=== PATIENT | male | born 1985 | race Asian ===

== ENCOUNTER 2017-03-26 18:06 | Emergency (ER) | payer OTHER ==
[2017-03-26 18:21] VITALS: BP 129/79; PULSE 77; RESP 14; TEMP 98.2; O2SAT 94
--- NOTE | 2017-03-26 18:31 | EDPHY ---
H & P Stated Complaint: pain right wrist from fall 2 months ago,no numbness or tingling Time Seen by Provider: 03/26/17 18:19 HPI/ROS: CHIEF COMPLAINT: Right wrist pain HISTORY OF PRESENT ILLNESS: This is a generally healthy 31-year-old male who presents with 2 months of right wrist pain. He injured his wrist 2 months ago while running--he fell onto his outstretched hand. Initially there was swelling and pain. He treated it with ice and over 4 day time. The swelling subsided. He has continued with pain, exacerbated by flexion, extension, eversion and inversion of the wrist. He can occasionally localize some pain at the distal radius and sometimes hears a "cracking" sound at that site. No numbness or weakness. He is right-hand dominant. REVIEW OF SYSTEMS: A ten point review of systems was performed and is negative with the exception of the items mentioned in the HPI. Past medical history: Negative Past surgical history: Negative Social history: No tobacco use. He works in construction. General Appearance: Alert. Vital signs reviewed. Focused exam performed. Respiratory: Lungs are clear to auscultation; no wheezes, rales, or rhonchi. Cardiovascular: Regular rate and rhythm; no murmur, rub, or gallop. Skin: Warm and dry, no rashes on exposed skin, normal color. Pulses: 2+ radial pulses bilaterally. Extremities: No visible or palpable deformity of the right upper extremity. No discrete bone tenderness of the right upper extremity. Full active range of motion of his right shoulder, elbow, and wrist. No ulnar collateral ligament laxity. Neurological: Alert and oriented. Moving all four extremities easily and equally. 5/5 strength in the upper extremities with testing of the deltoids, biceps, triceps, wrist flexion, wrist extension, wrist eversion and wrist inversion. Sensation is intact to light touch over both upper extremities. Psychiatric: Normal affect. - Personal History Current Tetanus Diphtheria and Acellular Pertussis (TDAP): Yes - Medical/Surgical History Hx Asthma: No Hx Chronic Respiratory Disease: No Hx Diabetes: No Hx Cardiac Disease: No Hx Renal Disease: No Hx Cirrhosis: No Hx Alcoholism: No Hx HIV/AIDS: No Hx Splenectomy or Spleen Trauma: No Other PMH: denies - Social History Smoking Status: Never smoked Constitutional: Initial Vital Signs Temperature (C) 36.8 C 03/26/17 18:15 Heart Rate 77 03/26/17 18:15 Respiratory Rate 14 03/26/17 18:15 Blood Pressure 129/79 H 03/26/17 18:15 O2 Sat (%) 94 03/26/17 18:15 O2 Delivery Mode Room Air Allergies/Adverse Reactions: No Known Allergies Allergy (Verified 03/26/17 18:21) Home Medications: Medication Instructions Recorded NK [No Known Home Meds] 03/26/17 Medical Decision Making - Diagnostics Imaging Results: Imaging Impressions Wrist X-Ray 03/26/17 18:22 Impression: Negative. No acute fracture. Imaging: I viewed and interpreted images myself ED Course/Re-evaluation: X-ray results reviewed with the patient. He has a brace at home and I am recommending that he try this while at work. He is being referred for physical therapy and orthopedic consultation. This appears to be a wrist sprain. There is no bony injury. I do not find ligamentous laxity on testing. Neurovascular testing is normal. Departure - Departure Disposition: Home, Routine, Self-Care Clinical Impression: Right wrist sprain Qualifiers: Encounter type: initial encounter Qualified Code(s): S63.501A - Unspecified sprain of right wrist, initial encounter Condition: Good Instructions: Wrist Sprain (ED) Additional Instructions: Wear the brace and see if this helps with your pain. I recommend taking ibuprofen 400 mg every 8 hours for pain and swelling. I am giving you a referral for physical therapy. I am also referring you to an orthopedist. Referrals: NOEMY ESPITIA,. [Primary Care Provider] - As per Instructions Jovanna Dubose MD [Medical Doctor] - As per Instructions
== END 2017-03-26 19:07 | disposition home or self-care (01) ==
LOC: CED 18:06
DX: S63.501A Unspecified sprain of right wrist, initial encounter (principal); W19.XXXA Unspecified fall, initial encounter; Y99.8 Other external cause status; Y93.02 Activity, running
CPT/HCPCS: 73110-PO